=== PATIENT | female | born 1985 | race Caucasian/White ===

== ENCOUNTER 2019-10-23 11:31 | Emergency (ER) | payer OTHER ==
[~2019-10-23] VITALS: Ht 157.5 cm; Wt 100.0 kg
[2019-10-23 11:39] VITALS: BP 130/80
--- NOTE | 2019-10-23 13:43 | NUR ---
COVID swab collected and sent to lab.
== END 2019-10-23 14:13 | disposition home or self-care (01) ==
LOC: ER 11:32
DX: R50.9 Fever, unspecified (principal); Z20.828 Contact with and (suspected) exposure to other viral communicable diseases; M25.512 Pain in left shoulder; M79.18 Myalgia, other site
CPT/HCPCS: 36415; 71045; 87635; 99284

== ENCOUNTER → 2025-01-31 | Emergency (ER) | payer OTHER ==
[~2025-01-31] VITALS: Ht 157.5 cm; Wt 107.3 kg
[2025-01-31 20:34] LABS: STREP A SCREEN NEGATIVE (Neg)
--- NOTE | 2025-01-31 20:47 | Physician Documentation ---
History of Present Illness ~ Chief Complaint: Sore Throat Stated Complaint: POSSIBLE STREP Time Seen by MD: 18:52 OK to notify your PCP?: Yes Primary Medical Doctor: none Source: patient Mode of Arrival: POV Exam Limitations: no limitations HPI 39-year-old female presents with sore throat x1 day. She had little bit of a cough yesterday as well but denies any fevers. She does have some exudate on her tonsils. No known exposure to strep throat. Medication Reconciliation Allergies: Uncoded Allergies: PCN (Allergy, Unknown, 10/23/19) Past Medical History Past Medical History: MRSA Abscess Past Surgical History: no surgical history Alcohol Use: Rarely Drug Use: none Lives In: Home Occupation: employed Review of Systems All Other Systems at this time: Reviewed and Negative Physical Exam Vital Signs: RN Vital Signs have been reviewed: Yes, Temperature: 98.2, Heart Rate: 82, Respiratory Rate: 16, BP: 120/84, Pulse Oximetry: 96, Weight: 107.270 Pulse Oximetry Reflects: adequate oxygenation Physical Exam General: Alert, no distress. HEENT: No injection, moist mucous membranes. Bilateral TM clear. Sinuses nontender. Erythema to posterior pharynx. Tonsils 2+ bilaterally. Neck: Full range of motion. Cervical lymphadenopathy worse on the left side. Respiratory: No respiratory distress, equal chest rise and fall. Chest: No accessory muscle use. Cardiovascular: Regular rate and rhythm. Gastrointestinal: Nondistended. Extremities: Normal range of motion, no deformity. Neurologic: Oriented x4. Psychiatric: Normal mood and affect. Skin: Normal color, warm and dry. Progress Results/Orders Reviewed/noted all lab results: Yes Results/Orders Orders - BETTY MARTIN Cult Throat + R/O Beta Strep (01/31/25 20:34) Completed Orders - BETTY MARTIN Strep A Rapid (01/31/25 20:14) Vital Signs 01/31/25 18:37 Temp 98.2 Pulse 82 Resp 16 B/P (MAP) 120/84 Pulse Ox 96 Laboratory Tests Test 01/31/25 20:00 Group A Streptococcus Rapid Negative Medical Decision Making Additional info obtained from: old records Findings 72-year-old female with a sore throat x1 day. She has not had any fevers, nausea, vomiting, diarrhea but she has had some slight congestion as well as a cough yesterday. Physical exam is unremarkable except for some posterior pharynx erythema and tonsils 2+ bilaterally. We did a strep test which was negative was so we discussed that this is a viral illness which is not require any antibiotics. She agrees with this plan. I gave her a work note for the next 2 days. She should follow up within the next week if this is not improved or if she worsens she can return back here. Throat Diff Dx: Considerations: Include: Epiglottitis, Infection mononucleosis, Peritonsillar abscess, Peritonsillar cellulitis, Pharyngitis-strepococcal Departure Disposition: HOME / SELF CARE / HOMELESS Impression: Primary Impression: Sore throat Condition: Stable Discharge Instructions: Strep Throat, Adult Additional Instructions: Follow up with her primary care provider in the next week if this is not improved. You can use [id number] medications for your sore throat. I have provided you with a work note for the next 2 days off. Return back here for any new or worsening symptoms. Departure Forms: Excuse form Work or School Excuse beginning now through the following date: Feb 02, 2025 Referrals: NO PRIMARY CARE PROVIDER (PCP) Education Educated: Patient Educated regarding: diagnosis, treatment, prognosis, need for follow up Additional Comment Medical Screen Exam This patient recieved a medical screening examination. After reviewing the individual's medical complaints with presenting symptoms and performing an appropriate physical examination, it was determined that no immediate life- threatening emergency medical condition is present. This individual is also not a women having contractions. Signature Scribe Signature: . Attestation: Scribed for Betty Martin by Betty Rodrigues NP . 01/31/25 20:54 Parts of this note were created using [employer] voice recognition software program. While efforts were made to correct any mistakes made by this voice recognition software program, nonsensical phrases may remain in this note. In addition, there may be errors and syntax, grammar, content and spelling. BETTY MARTIN Jan 31, 2025 20:47
[2025-01-31 21:02] VITALS: BP 120/82; PULSE 80; RESP 16; TEMP 98.6; O2SAT 99
== END | disposition home or self-care (01) ==
LOC: ER 18:27
DX: J02.9 Acute pharyngitis, unspecified (principal); R05.9 Cough, unspecified
CPT/HCPCS: 87081; 87880; 99283